=== PATIENT | female | born 1940 | race Caucasian/White ===

== ENCOUNTER 2021-07-16 18:26 | Outpatient (CLI) | payer MEDICARE, MEDICAID, SELFPAY ==
[2021-07-16 19:14] LABS: Potassium 3.7 mmol/L (3.5-5.1)
== END 2021-07-16 18:27 | disposition home or self-care (01) ==
PROVIDERS: Visit Provider Hospitalist
DX: E87.5 Hyperkalemia (principal)
CPT/HCPCS: 84132

== ENCOUNTER → 2023-05-12 15:17 | Outpatient (BNVA) | payer MEDICARE, OTHER, MEDICAID, SELFPAY | PROVIDERS: PCP Nurse Practitioner Family; Visit Provider Family Medicine | DX: N23 Unspecified renal colic (principal) | CPT/HCPCS: 81003; 87077; 87086; 87184 ==

== ENCOUNTER → 2023-06-11 13:54 | Outpatient (BNVA) | payer MEDICARE, OTHER, MEDICAID, SELFPAY | PROVIDERS: PCP Nurse Practitioner Family; Visit Provider Family Medicine | DX: R41.82 Altered mental status, unspecified (principal) | CPT/HCPCS: 80053 ==

== ENCOUNTER 2023-06-15 15:15 | Outpatient (CLI) | payer MEDICARE, MEDICAID, SELFPAY ==
[2023-06-15 15:52] LABS: Tobramycin Trough 0.6 ug/mL (0.0-2.0)
== END 2023-06-15 15:16 | disposition home or self-care (01) ==
LOC: LAB 15:16
PROVIDERS: PCP Nurse Practitioner Family; Visit Provider Family Medicine
DX: Z01.89 Encounter for other specified special examinations (principal)
CPT/HCPCS: 80200

== ENCOUNTER 2023-06-21 09:27 | Outpatient (CLI) | payer MEDICARE, MEDICAID, SELFPAY ==
[2023-06-21 10:29] LABS: Tobramycin Trough 0.9 ug/mL (0.0-2.0)
== END 2023-06-21 09:28 | disposition home or self-care (01) ==
PROVIDERS: PCP Nurse Practitioner Family; Visit Provider Family Medicine
DX: Z01.89 Encounter for other specified special examinations (principal)
CPT/HCPCS: 80200

== ENCOUNTER → 2023-09-17 10:11 | Outpatient (BNVA) | payer MEDICARE, MEDICAID, SELFPAY | PROVIDERS: PCP Nurse Practitioner Family; Visit Provider Family Medicine | DX: R30.0 Dysuria (principal); R41.82 Altered mental status, unspecified | CPT/HCPCS: 81003; 87077; 87086; 87184 ==

== ENCOUNTER 2023-11-24 12:59 | Emergency (ER) | payer MEDICARE, MEDICAID, SELFPAY ==
[2023-11-24 13:03] VITALS: BP 139/76; PULSE 85; RESP 18; TEMP 37.1; O2SAT 93; BMI 28.3
--- NOTE | 2023-11-24 13:07 | XR_ITS ---
WS: [id number] Exam: XR hip LT 2-3V wo/w pel* [id number] Date/Time of Exam: 11/24/2023 1:07 PM Reason For Exam: injury No acute fracture or dislocation. Moderate degenerative narrowing of the joint compartment. Osteopeni a. Normal soft tissues. IMPRESSION: 1. Moderate degenerative changes. No fracture or dislocation. Tonnis classification 2
--- NOTE | 2023-11-24 13:37 | CT_ITS ---
WS: [id number] CT LEFT HIP, NONCONTRAST. HISTORY: fall Technique: All CT scans at [facility] use at least one of these dose optimization techniques: automated exposure control; mA and/or kV adjustment per patient size (includes targeted exams where dose is matched to clinical indication); or iterative reconstruction. DLP: 481.31 mGy.cm COMPARISON: Radiograph 11/24/2023 Mild narrowing of the LEFT hip joint. No fracture or dislocation. No significant joint effusion or so ft tissue hematoma. Mild atrophy muscle surrounding the LEFT hip. Visualized LEFT pubic rami are inta ct. IMPRESSION: Negative LEFT hip. No fracture.
--- NOTE | 2023-11-24 13:37 | CT_ITS ---
WS: [id number] CT HEAD NONCONTRAST HISTORY: fall TECHNIQUE: Contiguous axial imaging performed through the brain in 2.5 mm imaging. Bone and soft tiss ue windows. Sagittal and coronal reformats reviewed. All CT scans at [facility] use at least one of these dose optimization techniques: automated exposure control; mA and/or kV adjustment per pa tient size (includes targeted exams where dose is matched to clinical indication); or iterative recon struction. DLP: 1757.21 mGy.cm COMPARISON: None available. No acute intracranial hemorrhage, midline shift or mass effect. Moderate atrophy. Diffuse low-attenuation throughout the white matter. No area of sulcal effacement t o suggest superimposed acute infarct. There is extensive chronic white matter disease. Ventricles: Normal size with no hydrocephalus. No intra displacement the cerebellar tonsils. Paranasal sinuses: Small mucous retention cyst or polyp in the RIGHT maxillary sinus. Mastoid air cells: Well pneumatized. Calvarium and scalp: Skull is intact with no soft tissue edema or swelling. IMPRESSION: 1. No acute intracranial hemorrhage or edema. 2. Moderate bilateral atrophy with severe chronic white matter ischemic disease.
--- NOTE | 2023-11-24 13:37 | CT_ITS ---
WS: [id number] CT CERVICAL SPINE HISTORY: fall TECHNIQUE: Contiguous 2.0 mm axial imaging performed through the entire cervical spine. Sagittal and coronal reformats also performed. All CT scans at [facility] use at least one of these dose o ptimization techniques: automated exposure control; mA and/or kV adjustment per patient size (include s targeted exams where dose is matched to clinical indication); or iterative reconstruction. DLP: 1757.21 mGy.cm COMPARISON: None available. Significant scoliosis and RIGHT curvature of the cervical spine. Craniocervical junction is intact. L ateral masses of C1 and C2 are nearly symmetric. The odontoid is intact. There is asymmetry of the fa cet joints and lateral masses of C1 and C2 which appears to be due to the curvature and scoliosis. Bilateral facet joint arthropathy with mild foraminal narrowing. No stenosis. Enlarged multinodular thyroid. Lung apices are clear. IMPRESSION: 1. No acute cervical spine fracture. 2. Significant RIGHT curvature cervical spine with asymmetry of the disc spaces and facet joints. No acute fracture. 3. Multinodular enlarged thyroid.
--- NOTE | 2023-11-24 13:38 | W.ED.EXTPRO ---
HPI - Extremity Problem General: Chief complaint: Extremity Injury, Lower Stated complaint: Fall Time Seen by Provider: 11/24/23 13:03 Source: EMS Mode of arrival: EMS Limitations: no limitations History of Present Illness: 83-year-old female who [facility] this morning concerned that she may have fractured her left hip she complains of left hip pain she states she also hit her head she had a recent fall as well where she had fracture left clavicle she denies any other injuries besides hip and head. 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, site unspecified Need for assistance with personal care Muscle weakness (generalized) Unspecified age-related cataract Physical Exam Const: COMMON NORMALS: no acute distress, patient oriented x3 and healthy appearing HENMT: COMMON NORMALS: normocephalic HEAD & SCALP: normocephalic OTHER: Contusion to forehead Eye: COMMON NORMALS: Equal, round and reactive pupils present and EOMs intact bilaterally PUPIL: Yes Equal, round and reactive pupils present Neck/C-Spine: COMMON NORMALS: full ROM and supple Chest: COMMONS NORMALS: normal inspection of the chest and normal palpation of entire chest wall Resp: COMMON NORMALS: normal respiratory effort, No retractions, No use of accessory muscles and clear to auscultation bilaterally AUSCULTATION: clear to auscultation bilaterally Cardio: COMMON NORMALS: regular rate, regular rhythm and No murmurs present (Cardio) RATE: regular rate RHYTHM: regular rhythm GI: COMMON NORMALS: Normal to inspection, nondistended, normoactive bowel sounds present, Soft to palpation, non-tender and no masses PALPATION: Yes Soft to palpation Extremity: COMMON NORMALS: normal to inspection and full ROM NARRATIVE EXTREMITY EXAM: Slight tenderness to the left hip no obvious deformity distal pulses sensation intact Neuro: COMMON NORMALS: patient oriented x3, moves all extremities and no focal motor deficits Psych: COMMON NORMALS: mental status grossly normal, Normal thought process present and cooperative THOUGHT PROCESS: Normal thought process present Skin: COMMON NORMALS: no rashes or lesions noted and no wounds GENERAL SKIN EXAM: no rashes or lesions noted Course Vital Signs: Vital signs: Vital Signs Temperature 98.7 F 11/24/23 13:03 Pulse Rate 85 11/24/23 13:03 Respiratory Rate 18 11/24/23 13:03 Blood Pressure 139/76 11/24/23 13:03 Pulse Oximetry 93 11/24/23 13:03 Oxygen Delivery Me thod Nasal Cannula 11/24/23 13:03 Oxygen Flow Rate 2 11/24/23 13:03 MDM - Extremity (Nontraumatic) Medical Decision Making Patient presents here with a fall left hip pain and hit her head imaging here is all normal she is stable for [facility]. Lab Data I reviewed the patient's lab results. All radiology interpretation(s) finalized by discharge Discharge Plan Discharge Patient Disposition: Home Clinical Impression: Fall Closed head injury Qualifiers: Encounter type: initial encounter Qualified Code(s): S09.90XA - Unspecified injury of head, initial encounter Contusion of hip, left Qualifiers: Encounter type: initial encounter Qualified Code(s): S70.02XA - Contusion of left hip, initial encounter Condition: Stable Prescriptions: No Action apixaban 5 mg tablet 5 mg PO BID aripiprazole 15 mg tablet 15 mg PO DAILY carboxymethylcellulose sodium 0.25 % dropperette 1 drp ophthalmic (eye) BID bisacodyl 5 mg tablet,delayed release (DR/EC) 20 mg PO DAILY PRN (Reason: Constipation) bisacodyl 10 mg suppository See Rx Instructions .ROUTE .COMPLEX PRN (Reason: Constipation) Rx Instructions: Insert 1 suppository rectally every 24 hours as needed for constipation. Administer 1 time only of no results from milk of magnesia. Zyrtec 10 mg capsule 10 mg PO DAILY PRN (Reason: ALLERGIES) cholecalciferol (vitamin D3) 1,250 mcg (50,000 unit) capsule 1,250 mcg PO Q7D duloxetine 60 mg capsule,delayed release(DR/EC) 60 mg PO DAILY famotidine 20 mg tablet 20 mg PO DAILY fluticasone propionate 50 mcg/actuation blister with device 2 inh inhalation DAILY folic acid 1 mg tablet 1 mg PO DAILY ipratropium-albuterol 0.5 mg-3 mg(2.5 mg base)/3 mL solution for nebulization 3 ml inhalation Q6H PRN (Reason: Shortness Of Breath) lactase 4,500 unit tablet 4,500 unit PO DAILY Rx Instructions: administer with meals and/or snacks loratadine [Allergy Relief (loratadine)] 10 mg tablet 10 mg PO DAILY magnesium citrate [Citrate of Magnesia] Solution See Rx Instructions .ROUTE .COMPLEX Rx Instructions: Give 10 ounces orally every 24 hours as needed for constipation. methimazole 5 mg tablet 5 mg PO BEDTIME magnesium hydroxide [Milk of Magnesia] 400 mg/5 mL suspension See Rx Instructions .ROUTE .COMPLEX PRN (Reason: Constipation) Rx Instructions: Give 30 mL orally every 24 hours as needed for constipation. Administer one time if no bm in 3 days. alum-mag hydroxide-simeth [Mylanta Maximum Strength] 400-400-40 mg/5 mL suspension 10 ml PO Q4H PRN (Reason: indigestion, heartburn or gas) nystatin 100,000 unit/gram cream See Rx Instructions .ROUTE .COMPLEX Rx Instructions: Apply to under breasts and bilateral groin topically twice daily for MASD until healed. polyethylene glycol 3350 17 gram/dose powder See Rx Instructions .ROUTE .COMPLEX PRN (Reason: Constipation) Rx Instructions: Give 1 scoop in 8 ounces liquid as needed. If not BM after 2 days, notify Sonal Benito Aprn pramipexole 0.5 mg tablet 0.5 mg PO BEDTIME acetaminophen 325 mg capsule 325 mg PO Q4H PRN (Reason: Pain) umeclidinium 62.5 mcg/actuation blister with device 1 inh inhalation DAILY Fleet Enema 19-7 gram/118 mL Enema 118 ml CO DAILY PRN (Reason: Constipation) Tylenol PM Extra Strength 25-500 mg Tablet 2 tab PO BEDTIME Calcium 600 600 mg calcium (1,500 mg) Tablet 600 mg PO DAILY carbidopa-levodopa 25-100 mg tablet 1 tab PO DAILY Guaifenesin DM 10-100 mg/5 mL Syrup 10 ml PO Q4H PRN (Reason: Cough) tramadol 50 mg tablet 50 mg PO Q6H PRN (Reason: left shoulder pain) ferrous sulfate 325 mg (65 mg iron) Tablet 325 mg PO BID clomipramine 50 mg capsule 50 mg PO BID Miralax 17 gram/dose Powder See Rx Instructions .ROUTE .COMPLEX Rx Instructions: Give 17 gram in 8 ounces liquid once daily at bedtime. Kaykay Lotion 1 applic TOPICAL BID cholestyramine (with sugar) 4 gram powder in packet See Rx Instructions .ROUTE .COMPLEX Rx Instructions: Give 1 packet in liquid twice daily. Macrobid 100 mg Capsule 100 mg PO BID I-Luis Manuel 300 mcg-200 mg-27 mg-2 mg Tablet 1 tab PO DAILY Rx Instructions: administer after a meal melatonin 5 mg Tablet 10 mg PO BEDTIME Discharge Orders: Discharge ED (Routine); Ordered 11/24/23 Ordered By: Barrett De Jesus Referrals: Esther Benito NP [Primary Care Provider] - 1-3 days Discharge Diet: Advance as tolerated Discharge Activity: Resume usual activity Patient Instructions: Contusion in Adults (ED) Coding Level of Care Code ED Retail Experience Specialist for Khai Castanon
--- NOTE | 2023-11-24 14:45 | PC.PHAR ---
SPOKE WITH NURSE GIRALDO ABOUT DISCREPANCIES ON JAN. TYLENOL PM IS 2 AT BEDTIME., TYLENOL 325 MG IS 2 EVERY 4 HOURS PRN.,DUPLICATE ORDER OF TYLENOL 325 MG AND BISACODYL SUPPOSITORY WAS REMOVED., CARBIDOPA 25 MG CHANGED TO CARBIDOPA LEVODOPA 25-100 DAILY., CLOMIPRAMINE 50MG TWICE DAILY- WAS ENTERED CLOMIPHENE 50MG AND WAS CHANGED., FERROUS SULFATE 325MG WAS ENTERED FERROUS FUMARATE AND WAS CHANGED.,LACTASE 4500 UNITS DAILY WAS PUT IN 4 TIMES DAILY AND CHANGED TO DAILY.,MAG CITRATE PUT IN POWDER AND CHANGED TO LIQUID., MYLANTA WAS ENTERED 4 TIMES DAILY AND WAS CHANGED TO DAILY., MIRALAX VERIFIED 1 DAILY ORDER AT BEDTIME AND 1 PRN ORDER. 11/24/23
--- NOTE | 2023-11-24 15:04 | PC.PHAR ---
PT IS FROM [facility] [place]) [phone]
[2023-11-24 15:38] VITALS: BP 128/95; PULSE 77; O2SAT 97
[2023-11-24 16:30] VITALS: BP 131/92; PULSE 84; O2SAT 96
== END 2023-11-24 19:37 | disposition home or self-care (01) ==
PROVIDERS: Emergency Provider Emergency Medicine; PCP Nurse Practitioner Family
DX: M25.552 Pain in left hip (principal); W19.XXXA Unspecified fall, initial encounter; Z91.81 History of falling
CPT/HCPCS: 70450; 72125; 73502; 73700; 99284

== ENCOUNTER → 2023-12-30 11:31 | Outpatient (BNVA) | payer MEDICARE, MEDICAID, SELFPAY | PROVIDERS: PCP Nurse Practitioner Family; Referring Provider Nurse Practitioner Family; Visit Provider Student in an Organized Health Care Education/Training Program | DX: S42.002A Fracture of unspecified part of left clavicle, initial encounter for closed fracture; W19.XXXA Unspecified fall, initial encounter | CPT/HCPCS: 23500; 73000; 99204 ==

== ENCOUNTER → 2024-02-02 11:52 | Outpatient (BNVA) | payer MEDICARE, MEDICAID, SELFPAY | PROVIDERS: PCP Nurse Practitioner Family; Visit Provider Nurse Practitioner Family | DX: R82.90 Unspecified abnormal findings in urine (principal) | CPT/HCPCS: 81003; 87077; 87086; 87184 ==

== ENCOUNTER → 2024-03-08 13:58 | Outpatient (BNVA) | payer MEDICARE, MEDICAID, SELFPAY | PROVIDERS: PCP Nurse Practitioner Family; Visit Provider Nurse Practitioner Family | DX: R41.0 Disorientation, unspecified (principal) | CPT/HCPCS: 81000; 87077; 87086; 87184 ==

== ENCOUNTER → 2024-03-24 11:48 | Outpatient (BNVA) | payer MEDICARE, MEDICAID, SELFPAY | PROVIDERS: PCP Nurse Practitioner Family; Visit Provider Student in an Organized Health Care Education/Training Program | DX: S42.002A Fracture of unspecified part of left clavicle, initial encounter for closed fracture (principal); X58.XXXA Exposure to other specified factors, initial encounter | CPT/HCPCS: 73000; 99213 ==

== ENCOUNTER → 2024-06-19 15:53 | Outpatient (BNVA) | payer MEDICARE, MEDICAID, SELFPAY | PROVIDERS: PCP Nurse Practitioner Family; Visit Provider Nurse Practitioner Family | DX: N30.01 Acute cystitis with hematuria (principal) | CPT/HCPCS: 81000; 87086 ==

== ENCOUNTER 2024-07-24 04:38 | Emergency (ER) | payer MEDICARE, MEDICAID, SELFPAY ==
[2024-07-24 04:39] VITALS: BP 145/84; PULSE 75; RESP 16; TEMP 36.3; O2SAT 94; BMI 37.8
[2024-07-24 04:49] VITALS: BP 145/84; PULSE 75; RESP 16; O2SAT 97
--- NOTE | 2024-07-24 04:49 | CTR_ITS ---
PROCEDURE INFORMATION: Exam: CT Head Without Contrast Exam date and time: 07/24/2024 4:54 AM Age: 83 years old Clinical indication: Injury or trauma; Blunt trauma (contusions or hematomas) and laceration; Without residual foreign body; Right; Patient HX: EMS arrival from [facility] for fall with headstrike. Deep lac with hematoma to RT eyebrow. Anticoagulated. ; Additional info: Fall head inj TECHNIQUE: Imaging protocol: Computed tomography of the head without contrast. Radiation optimization: All CT scans at this facility use at least one of these dose optimization techniques: automated exposure control; mA and/or kV adjustment per patient size (includes targeted exams where dose is matched to clinical indication); or iterative reconstruction. COMPARISON: CT head wo con* [id number] 11/24/2023 1:45 PM RADIATION DOSE METRICS: Total DLP (mGy-cm): 1084.6 FINDINGS: Brain: . No hemorrhage. Periventricular white matter lucency represents atherosclerotic encephalopathic changes. Cerebral ventricles: No ventriculomegaly. Mild ventricular prominence proportionate to the degree of atrophy observed. Paranasal sinuses: Visualized sinuses are unremarkable. No fluid levels. Mastoid air cells: Visualized mastoid air cells are well aerated. Bones: Unremarkable. No acute fracture. Soft tissues: Soft tissue injury above the right orbit. Other findings: No mass effect. CT/CT head wo con* [id number] IMPRESSION: No acute intracranial abnormality.
--- NOTE | 2024-07-24 04:49 | CTR_ITS ---
PROCEDURE INFORMATION: Exam: CT Cervical Spine Without Contrast Exam date and time: 07/24/2024 4:58 AM Age: 83 years old Clinical indication: Injury or trauma; Blunt trauma; Patient HX: EMS arrival from residential for fall with headstrike. Deep lac with hematoma to RT eyebrow. Anticoagulated. ; Additional info: Fall head inj TECHNIQUE: Imaging protocol: Computed tomography of the cervical spine without contrast. Radiation optimization: All CT scans at this facility use at least one of these dose optimization techniques: automated exposure control; mA and/or kV adjustment per patient size (includes targeted exams where dose is matched to clinical indication); or iterative reconstruction. COMPARISON: CT cervical spin wo con* [id number] 11/24/2023 1:45 PM RADIATION DOSE METRICS: Total DLP (mGy-cm): 597.54 FINDINGS: Bones: No acute fracture. Mild diffuse demineralization. Disc space narrowing and spurring C4 through C7. Anatomic alignment. No fracture, lytic, or sclerotic bone lesion. No significant disc bulge or herniation. No severe spinal canal stenosis. No significant neural foraminal narrowing. Lungs: Lung apices are normal. Soft tissues: Unremarkable. CT/CT cervical spin wo con* [id number] IMPRESSION: No acute findings.
[2024-07-24] MEDS: lidocaine-epi 1% 20 mL INJ 10 ML INJECTION (05:15)
--- NOTE | 2024-07-24 05:38 | W.ED.FALL ---
HPI - Fall General: Chief Complaint: Fall Stated Complaint: FALL Time Seen by Provider: 07/24/24 04:46 History of Present Illness: 83-year-old female prison patient with a history of Alzheimer's dementia. She was found on the floor sometime after 3 AM. She has a right sided periorbital/eyebrow lack. She has pain in that area. She has not vomited. She believes she remembers the fall, but does not remember other details. Related Data Home Medications Medication Instructions Recorded Confirmed acetaminophen 325 mg capsule 325 mg PO Q4H PRN Pain 09/28/23 06/30/24 aluminum-mag hydroxide-simethicone 10 ml PO Q4H PRN indigestion, 09/28/23 06/30/24 400 mg-400 mg-40 mg/5 mL oral susp heartburn or gas (Mylanta Maximum Strength) apixaban 5 mg tablet 5 mg PO BID 09/28/23 06/30/24 aripiprazole 15 mg tablet 15 mg PO DAILY 09/28/23 06/30/24 bisacodyl 10 mg rectal suppository See Rx Instructions .Route 09/28/23 06/30/24 .COMPLEX PRN Constipation bisacodyl 5 mg tablet,delayed 20 mg PO DAILY PRN Constipation 09/28/23 06/30/24 release carboxymethylcellulose sodium 0.25 1 drp ophthalmic (eye) BID 09/28/23 06/30/24 % eye drops in a dropperette cetirizine 10 mg capsule (Zyrtec) 10 mg PO DAILY PRN ALLERGIES 09/28/23 06/30/24 cholecalciferol (vitamin D3) 1,250 1,250 mcg PO Q7D 09/28/23 06/30/24 mcg (50,000 unit) capsule duloxetine 60 mg capsule,delayed 60 mg PO DAILY 09/28/23 06/30/24 release famotidine 20 mg tablet 20 mg PO DAILY 09/28/23 06/30/24 fluticasone propionate 50 2 inh inhalation DAILY 09/28/23 06/30/24 mcg/actuation blister powder for inhalation folic acid 1 mg tablet 1 mg PO DAILY 09/28/23 06/30/24 ipratropium 0.5 mg-albuterol 3 mg 3 ml inhalation Q6H PRN Shortness 09/28/23 06/30/24 (2.5 mg base)/3 mL nebulization Of Breath soln lactase 4,500 unit tablet 4,500 unit PO DAILY 09/28/23 06/30/24 loratadine 10 mg tablet (Allergy 10 mg PO DAILY 09/28/23 06/30/24 Relief (loratadine)) magnesium citrate (Citrate of See Rx Instructions .Route .COMPLEX 09/28/23 06/30/24 Magnesia oral) magnesium hydroxide 400 mg/5 mL See Rx Instructions .Route 09/28/23 06/30/24 oral suspension (Milk of Magnesia) .COMPLEX PRN Constipation methimazole 5 mg tablet 5 mg PO BEDTIME 09/28/23 06/30/24 nystatin 100,000 unit/gram topical See Rx Instructions .Route .COMPLEX 09/28/23 06/30/24 cream polyethylene glycol 3350 17 See Rx Instructions .Route 09/28/23 06/30/24 gram/dose oral powder .COMPLEX PRN Constipation pramipexole 0.5 mg tablet 0.5 mg PO BEDTIME 09/28/23 06/30/24 umeclidinium 62.5 mcg/actuation 1 inh inhalation DAILY 09/28/23 06/30/24 blister powder for inhalation calcium carbonate (Calcium 600) 600 mg PO DAILY 11/24/23 06/30/24 carbidopa 25 mg-levodopa 100 mg 1 tab PO DAILY 11/24/23 06/30/24 tablet cholestyramine (with sugar) 4 gram See Rx Instructions .Route .COMPLEX 11/24/23 06/30/24 powder for susp in a packet clomipramine 50 mg capsule 50 mg PO BID 11/24/23 06/30/24 dextromethorphan-guaifenesin 10 10 ml PO Q4H PRN Cough 11/24/23 06/30/24 mg-100 mg/5 mL oral syrup diphenhydramine 25 2 tab PO BEDTIME 11/24/23 06/30/24 mg-acetaminophen 500 mg tablet (Tylenol PM Extra Strength) ferrous sulfate 325 mg (65 mg 325 mg PO BID 11/24/23 06/30/24 iron) tablet lanolin-mineral oil lotion 1 applic topical BID 11/24/23 06/30/24 melatonin 5 mg tablet 10 mg PO BEDTIME 11/24/23 06/30/24 polyethylene glycol 3350 17 See Rx Instructions .Route .COMPLEX 11/24/23 06/30/24 gram/dose oral powder (Miralax) sodium phosphates 19 gram-7 118 ml MS DAILY PRN Constipation 11/24/23 06/30/24 gram/118 mL enema (Fleet Enema) vit A 300 mcg-C 200 mg-E 27 1 tab PO DAILY 11/24/23 06/30/24 mg-lutein 2 mg and minerals tablet (I-Luis Manuel) Allergies Allergy/AdvReac Type Severity Reaction Status Date / Time cefdinir Allergy Unknown Unknown Verified 07/24/24 04:46 egg Allergy Unknown Unknown Verified 07/24/24 04:46 lactose Allergy Unknown Unknown Verified 07/24/24 04:46 Penicillins Allergy Unknown Unknown Verified 07/24/24 04:46 Sulfa (Sulfonamide Allergy Unknown Unknown Verified 07/24/24 04:46 Antibiotics) PFS ED PFSH: Medical History Anxiety disorder, unspecified Dependence on supplemental oxygen Essential (primary) hypertension Absent-minded Calculus of kidney Vitamin D deficiency, unspecified 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, site unspecified Need for assistance with personal care Muscle weakness (generalized) Unspecified age-related cataract Social History Smoking and tobacco/nicotine status: unknown if used tobacco/nicotine Alcohol intake: never Physical Exam Const: COMMON NORMALS: no acute distress GENERAL APPEARANCE: cooperative and frail appearing; not ill appearing ORIENTATION/CONSCIOUSNESS: Yes awake, Yes oriented to person and Yes oriented to place; not oriented to time HENMT: COMMON NORMALS: normocephalic HEAD & SCALP: normocephalic and laceration (Right eyebrow) FACE & SINUS: ecchymosis (Right forehead and periorbital) Eye: COMMON NORMALS: Equal, round and reactive pupils present and EOMs intact bilaterally GENERAL EYE: no proptosis EYELID: eyelids normal PUPIL: Yes Equal, round and reactive pupils present Neck/C-Spine: GENERAL: Yes trachea midline CERVICAL SPINE: No pain with cervical ROM and Yes Cervical spine tenderness (Mild base) Resp: COMMON NORMALS: normal respiratory effort and clear to auscultation bilaterally AUSCULTATION: clear to auscultation bilaterally Cardio: COMMON NORMALS: regular rate and regular rhythm RATE: regular rate RHYTHM: regular rhythm GI: COMMON NORMALS: Soft to palpation PALPATION: Yes Soft to palpation and No Tenderness to palpation present (GI) Neuro: SENSORIUM/ORIENTATION: Yes oriented to person, Yes oriented to place and No oriented to time Procedures Laceration Laceration 1: Site: face Side (If applicable): right Size (cm): 3 Description: irregular Depth: simple, single layer Local Anesthetic: lidocaine 1% and with epi Amount of anesthesia used (mL): 5 Pre-repair: wound explored, irrigated extensively and deep structures intact Skin layer closed with: other (Prolene) Size (cm): 5-0 Number of sutures: 5 Technique: simple, interrupted Course Vital Signs: Vital signs: Vital Signs Temperature 97.4 F L 07/24/24 04:39 Pulse Rate 73 07/24/24 11:06 Respiratory Rate 16 07/24/24 06:21 Blood Pressure 135/105 07/24/24 11:06 Pulse Oximetry 92 07/24/24 11:06 Oxygen Delivery Me thod Nasal Cannula 07/24/24 07:22 Oxygen Flow Rate 2 07/24/24 07:22 MDM - Fall Medical Decision Making Patient appears by history to be baseline mental status. She is anticoagulated. CT of the head and C-spine are pending. Laceration is repaired without complication. CTs of the head and cervical spine are negative for trauma. She remains stable. She will be discharged to return for and new concerns or symptoms. Lab Data Radiology Impressions Cervical Spine CT 07/24/24 04:49 IMPRESSION: No acute findings. Head CT 07/24/24 04:49 IMPRESSION: No acute intracranial abnormality. All radiology interpretation(s) finalized by discharge Discharge Plan Discharge Patient Disposition: Home Clinical Impression: Facial laceration Qualifiers: Encounter type: initial encounter Qualified Code(s): S01.81XA - Laceration without foreign body of other part of head, initial encounter Contusion of face Qualifiers: Encounter type: initial encounter Qualified Code(s): S00.83XA - Contusion of other part of head, initial encounter Condition: Stable Prescriptions: No Action apixaban 5 mg tablet 5 mg PO BID aripiprazole 15 mg tablet 15 mg PO DAILY carboxymethylcellulose sodium 0.25 % dropperette 1 drp ophthalmic (eye) BID bisacodyl 5 mg tablet,delayed release (DR/EC) 20 mg PO DAILY PRN (Reason: Constipation) bisacodyl 10 mg suppository See Rx Instructions .ROUTE .COMPLEX PRN (Reason: Constipation) Rx Instructions: Insert 1 suppository rectally every 24 hours as needed for constipation. Administer 1 time only of no results from milk of magnesia. Zyrtec 10 mg capsule 10 mg PO DAILY PRN (Reason: ALLERGIES) cholecalciferol (vitamin D3) 1,250 mcg (50,000 unit) capsule 1,250 mcg PO Q7D duloxetine 60 mg capsule,delayed release(DR/EC) 60 mg PO DAILY famotidine 20 mg tablet 20 mg PO DAILY fluticasone propionate 50 mcg/actuation blister with device 2 inh inhalation DAILY folic acid 1 mg tablet 1 mg PO DAILY ipratropium-albuterol 0.5 mg-3 mg(2.5 mg base)/3 mL solution for nebulization 3 ml inhalation Q6H PRN (Reason: Shortness Of Breath) lactase 4,500 unit tablet 4,500 unit PO DAILY Rx Instructions: administer with meals and/or snacks loratadine [Allergy Relief (loratadine)] 10 mg tablet 10 mg PO DAILY magnesium citrate [Citrate of Magnesia] Solution See Rx Instructions .ROUTE .COMPLEX Rx Instructions: Give 10 ounces orally every 24 hours as needed for constipation. methimazole 5 mg tablet 5 mg PO BEDTIME magnesium hydroxide [Milk of Magnesia] 400 mg/5 mL suspension See Rx Instructions .ROUTE .COMPLEX PRN (Reason: Constipation) Rx Instructions: Give 30 mL orally every 24 hours as needed for constipation. Administer one time if no bm in 3 days. alum-mag hydroxide-simeth [Mylanta Maximum Strength] 400-400-40 mg/5 mL suspension 10 ml PO Q4H PRN (Reason: indigestion, heartburn or gas) nystatin 100,000 unit/gram cream See Rx Instructions .ROUTE .COMPLEX Rx Instructions: Apply to under breasts and bilateral groin topically twice daily for MASD until healed. polyethylene glycol 3350 17 gram/dose powder See Rx Instructions .ROUTE .COMPLEX PRN (Reason: Constipation) Rx Instructions: Give 1 scoop in 8 ounces liquid as needed. If not BM after 2 days, notify Sonal Benito Aprn pramipexole 0.5 mg tablet 0.5 mg PO BEDTIME acetaminophen 325 mg capsule 325 mg PO Q4H PRN (Reason: Pain) umeclidinium 62.5 mcg/actuation blister with device 1 inh inhalation DAILY Fleet Enema 19-7 gram/118 mL Enema 118 ml MS DAILY PRN (Reason: Constipation) Tylenol PM Extra Strength 25-500 mg Tablet 2 tab PO BEDTIME Calcium 600 600 mg calcium (1,500 mg) Tablet 600 mg PO DAILY carbidopa-levodopa 25-100 mg tablet 1 tab PO DAILY Guaifenesin DM 10-100 mg/5 mL Syrup 10 ml PO Q4H PRN (Reason: Cough) ferrous sulfate 325 mg (65 mg iron) Tablet 325 mg PO BID clomipramine 50 mg capsule 50 mg PO BID Miralax 17 gram/dose Powder See Rx Instructions .ROUTE .COMPLEX Rx Instructions: Give 17 gram in 8 ounces liquid once daily at bedtime. [place] Lotion 1 applic TOPICAL BID cholestyramine (with sugar) 4 gram powder in packet See Rx Instructions .ROUTE .COMPLEX Rx Instructions: Give 1 packet in liquid twice daily. I-Luis Manuel 300 mcg-200 mg-27 mg-2 mg Tablet 1 tab PO DAILY Rx Instructions: administer after a meal melatonin 5 mg Tablet 10 mg PO BEDTIME Discharge Orders: Discharge ED (Routine); Ordered 07/24/24 Ordered By: Ricardo Mendez Referrals: Esther Benito [employer]INE OPERATOR [Primary Care Provider] - 4-7 days Patient Instructions: Facial Contusion (ED), Facial Laceration (ED), Opioid Safety, Pain Management Activity Restrictions/Additional Instructions: Keep wound clean and dry for 24 hours, then you may wash with soap and running water. Do not soak. Sutures out in 7 days. Return for vomiting, worsening mental status, other concerning symptoms. Coding Level of Care Code ED Public Message Service Supervisor for Khai Castanon
[2024-07-24 06:21] VITALS: BP 117/56; PULSE 76; RESP 16; O2SAT 92
[2024-07-24 07:22] VITALS: BP 145/92; PULSE 82; O2SAT 96
[2024-07-24 11:06] VITALS: BP 135/105; PULSE 73; O2SAT 92
== END 2024-07-24 11:11 | disposition home or self-care (01) ==
PROVIDERS: Emergency Provider Emergency Medicine; PCP Nurse Practitioner Family
DX: S01.111A Laceration without foreign body of right eyelid and periocular area, initial encounter (principal); S00.83XA Contusion of other part of head, initial encounter; I10 Essential (primary) hypertension; G30.9 Alzheimer's disease, unspecified; F02.80 Dementia in other diseases classified elsewhere, unspecified severity, without behavioral disturbance, psychotic disturbance, mood disturbance, and anxiety; W19.XXXA Unspecified fall, initial encounter
CPT/HCPCS: 12013; 70450; 72125; 99284

== ENCOUNTER → 2024-09-13 09:00 | Outpatient (BNVA) | payer MEDICARE, MEDICAID, SELFPAY | PROVIDERS: PCP Nurse Practitioner Family; Visit Provider Nurse Practitioner Family | DX: N30.01 Acute cystitis with hematuria (principal) | CPT/HCPCS: 81000; 87086 ==

== ENCOUNTER 2025-01-17 11:34 | Outpatient (CLI) | payer MEDICARE, MEDICAID, SELFPAY ==
--- NOTE | 2025-01-17 11:45 | MR_ITS ---
WS: [id number] MRI RIGHT SHOULDER HISTORY: M25.511 - Pain in right shoulder COMPARISON: None available. TECHNIQUE: Multiplanar sequences of the shoulder joint are submitted. Significant motion artifact on all sequences. Patient terminated study early due to pain and discomfort. Moderate AC joint arthritis. Moderate subacromial impingement. Enthesopathy along the distal undersurface of the acromion. Small amount of fluid in the subacromial and subdeltoid bursa. No os acromion. Biceps tendon is difficult to identify in the bicipital groove. The tendon is probably present and contains some intermediate signal. Poorly visualized at best. High riding humeral head. Marked narrowing of the glenohumeral joint with osteophytic ridging. Loss of cartilage. Mild atrophy of the supraspinatus muscle. Complete tear of the distal supraspinatus tendon. Tendon is retracted to the superior humeral head. Fluid in the subscapularis recess. Infraspinatus and subscapularis tendons are difficult to identify in their entirety. No full- thickness tears are identified. Poorly visualized labrum. MR/MR shoulder RT wo con* [id number] IMPRESSION: 1. Study is limited by motion and early termination. Patient terminated the st udy early due to discomfort. 2. Complete tear of the supraspinatus tendon with retraction to the superior h umeral head. 3. Moderate AC joint arthritis. 4. Moderate subacromial impingement. 5. Mild supraspinatus muscle atrophy. 6. Poorly visualized labrum, biceps tendon and distal subscapularis and infras pinatus tendons.
== END 2025-01-17 11:35 | disposition home or self-care (01) ==
PROVIDERS: PCP Nurse Practitioner Family; Visit Provider Nurse Practitioner Family
DX: M19.011 Primary osteoarthritis, right shoulder (principal); G89.29 Other chronic pain; M75.101 Unspecified rotator cuff tear or rupture of right shoulder, not specified as traumatic; M75.41 Impingement syndrome of right shoulder; M62.511 Muscle wasting and atrophy, not elsewhere classified, right shoulder; R93.6 Abnormal findings on diagnostic imaging of limbs; M77.8 Other enthesopathies, not elsewhere classified
CPT/HCPCS: 73221

== ENCOUNTER → 2025-01-19 15:07 | Outpatient (BNVA) | payer MEDICARE, MEDICAID, SELFPAY | PROVIDERS: PCP Nurse Practitioner Family; Visit Provider Nurse Practitioner Family | DX: R30.0 Dysuria (principal) | CPT/HCPCS: 81000; 87086 ==

== ENCOUNTER → 2025-01-22 11:38 | Outpatient (BNVA) | payer MEDICARE, MEDICAID, SELFPAY | PROVIDERS: PCP Nurse Practitioner Family; Visit Provider Orthopaedic Surgery | DX: M25.511 Pain in right shoulder (principal); G89.29 Other chronic pain; M75.101 Unspecified rotator cuff tear or rupture of right shoulder, not specified as traumatic | CPT/HCPCS: 73030; 99204 ==

== ENCOUNTER → 2025-02-09 14:35 | Outpatient (BNVA) | payer MEDICARE, MEDICAID, SELFPAY | PROVIDERS: PCP Nurse Practitioner Family; Visit Provider Nurse Practitioner Family | DX: R30.0 Dysuria (principal) | CPT/HCPCS: 81000; 87086 ==

== ENCOUNTER 2025-02-26 10:48 | Emergency (ER) | payer MEDICARE, MEDICAID, SELFPAY ==
[2025-02-26 10:48] VITALS: BP 105/47; PULSE 78; RESP 12; TEMP 36.6; O2SAT 96
--- NOTE | 2025-02-26 10:58 | W.ED.SOB ---
HPI - SOB/Dyspnea General: Chief Complaint: Shortness of Breath/Dyspnea Stated Complaint: hypoxic Time Seen by Provider: 02/26/25 10:53 History of Present Illness: HPI Narrative: 84-year-old female [facility] because they feel like she was requiring low bit more oxygen than her baseline. Upon arrival she is staying 97% on 5 L. She stable on 4 L. Patient received a DuoNeb en route. They also complain that she has been on antibiotics for a month for UTI and it has not helped. Associated symptoms: Deny fever(s) Related Data Home Medications ?Medication ?Instructions ?Recorded ?Confirmed acetaminophen 325 mg capsule 325 mg PO Q4H PRN Pain 09/28/23 02/26/25 aluminum-mag hydroxide-simethicone 10 ml PO Q4H PRN indigestion, 09/28/23 02/26/25 400 mg-400 mg-40 mg/5 mL oral susp heartburn or gas (Mylanta Maximum Strength) apixaban 5 mg tablet 5 mg PO BID 09/28/23 02/26/25 bisacodyl 10 mg rectal suppository See Rx Instructions .Route 09/28/23 02/26/25 .COMPLEX PRN Constipation bisacodyl 5 mg tablet,delayed 20 mg PO DAILY PRN Constipation 09/28/23 02/26/25 release carboxymethylcellulose sodium 0.25 1 drp ophthalmic (eye) BID 09/28/23 02/26/25 % eye drops in a dropperette cholecalciferol (vitamin D3) 1,250 1,250 mcg PO Q7D 09/28/23 02/26/25 mcg (50,000 unit) capsule duloxetine 60 mg capsule,delayed 60 mg PO DAILY 09/28/23 02/26/25 release famotidine 20 mg tablet 20 mg PO DAILY 09/28/23 02/26/25 fluticasone propionate 50 2 inh inhalation DAILY 09/28/23 02/26/25 mcg/actuation blister powder for inhalation folic acid 1 mg tablet 1 mg PO DAILY 09/28/23 02/26/25 ipratropium 0.5 mg-albuterol 3 mg 3 ml inhalation Q6H PRN Shortness 09/28/23 02/26/25 (2.5 mg base)/3 mL nebulization Of Breath soln lactase 4,500 unit tablet 4,500 unit PO DAILY 09/28/23 02/26/25 loratadine 10 mg tablet (Allergy 10 mg PO DAILY 09/28/23 02/26/25 Relief (loratadine)) magnesium citrate (Citrate of See Rx Instructions .Route .COMPLEX 09/28/23 02/26/25 Magnesia oral) magnesium hydroxide 400 mg/5 mL See Rx Instructions .Route 09/28/23 02/26/25 oral suspension (Milk of Magnesia) .COMPLEX PRN Constipation methimazole 5 mg tablet 5 mg PO BEDTIME 09/28/23 02/26/25 nystatin 100,000 unit/gram topical See Rx Instructions .Route .COMPLEX 09/28/23 02/26/25 cream polyethylene glycol 3350 17 See Rx Instructions .Route 09/28/23 02/26/25 gram/dose oral powder .COMPLEX PRN Constipation pramipexole 0.5 mg tablet 0.5 mg PO BEDTIME 09/28/23 02/26/25 umeclidinium 62.5 mcg/actuation 1 inh inhalation DAILY 09/28/23 02/26/25 blister powder for inhalation calcium carbonate (Calcium 600) 600 mg PO DAILY 11/24/23 02/26/25 carbidopa 25 mg-levodopa 100 mg 1 tab PO DAILY 11/24/23 02/26/25 tablet cholestyramine (with sugar) 4 gram See Rx Instructions .Route .COMPLEX 11/24/23 02/26/25 powder for susp in a packet clomipramine 50 mg capsule 50 mg PO BID 11/24/23 02/26/25 dextromethorphan-guaifenesin 10 10 ml PO Q4H PRN Cough 11/24/23 02/26/25 mg-100 mg/5 mL oral syrup diphenhydramine 25 2 tab PO BEDTIME 11/24/23 02/26/25 mg-acetaminophen 500 mg tablet (Tylenol PM Extra Strength) ferrous sulfate 325 mg (65 mg 325 mg PO BID 11/24/23 02/26/25 iron) tablet lanolin-mineral oil lotion 1 applic topical BID 11/24/23 02/26/25 melatonin 5 mg tablet 10 mg PO BEDTIME 11/24/23 02/26/25 polyethylene glycol 3350 17 See Rx Instructions .Route .COMPLEX 11/24/23 02/26/25 gram/dose oral powder (Miralax) sodium phosphates 19 gram-7 118 ml AL DAILY PRN Constipation 11/24/23 02/26/25 gram/118 mL enema (Fleet Enema) vit A 300 mcg-C 200 mg-E 27 1 tab PO DAILY 11/24/23 02/26/25 mg-lutein 2 mg and minerals tablet (I-Luis Manuel) alprazolam 1 mg tablet 1 mg PO BID 02/26/25 02/26/25 aripiprazole 30 mg tablet 30 mg PO DAILY 02/26/25 02/26/25 ciprofloxacin HCl 500 mg tablet 500 mg PO BID 02/26/25 02/26/25 fluticasone propionate 50 1 spray intranasal DAILY 02/26/25 02/26/25 mcg/actuation nasal spray,suspension Previous Rx's ?Medication ?Instructions ?Recorded nitrofurantoin 100 mg PO Q12H 7 days #14 caps 02/26/25 monohydrate/macrocrystals 100 mg capsule (Macrobid) Allergies Allergy/AdvReac Type Severity Reaction Status Date / Time cefdinir Allergy Unknown Unknown Verified 01/22/25 11:39 egg Allergy Unknown Unknown Verified 01/22/25 11:39 lactose Allergy Unknown Unknown Verified 01/22/25 11:39 Penicillins Allergy Unknown Unknown Verified 01/22/25 11:39 Sulfa (Sulfonamide Allergy Unknown Unknown Verified 01/22/25 11:39 Antibiotics) Review of Systems General: Reports: Other (Limited due to baseline dementia) Const: Denies: fever(s) Resp: Reports: non-productive cough PFSH ED PFSH: Medical History Anxiety disorder, unspecified Dependence on supplemental oxygen Essential (primary) hypertension Absent-minded Calculus of kidney Vitamin D deficiency, unspecified 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, site unspecified Need for assistance with personal care Muscle weakness (generalized) Unspecified age-related cataract Social History Smoking and tobacco/nicotine status: former use of tobacco/nicotine Alcohol intake: never Physical Exam Const: COMMON NORMALS: no acute distress Resp: COMMON NORMALS: normal respiratory effort AUSCULTATION: no wheezes, diminished lung sounds (Mild) and bronchial breath sounds Cardio: COMMON NORMALS: regular rate and regular rhythm RATE: regular rate RHYTHM: regular rhythm Neuro: OTHER: At baseline Psych: OTHER: At baseline Course Vital Signs: Vital signs: Vital Signs Temperature 97.8 F 02/26/25 10:48 Pulse Rate 80 02/26/25 13:29 Respiratory Rate 16 02/26/25 13:29 Blood Pressure 113/72 02/26/25 13:29 Pulse Oximetry 92 02/26/25 13:29 Oxygen Delivery Me thod Nasal Cannula 02/26/25 12:47 Oxygen Flow Rate 3 02/26/25 12:47 MDM - SOB/Dyspnea Medical Decision Making Patient's diagnostic studies were ordered reviewed and showed no acute findings on labs. Patient does have a chronic urinary tract infection. I did review her previous microbiology and it appears to be susceptible to Macrobid so I will start her on this as she has multitude of allergies. Patient's x-ray showed likely rotation however mass or wide mediastinum could be possible so I did obtain a CTA that shows no acute findings. Patient's O2 saturations were maintaining in the mid 90s on her baseline 3 L. Patient received DuoNeb and route and had clear lungs while in the ER. Patient received Solu-Medrol in the ER. Patient is stable throughout her stay and will be [facility] with recommendations to follow-up with her primary care provider for chronic UTI and chronic COPD. She was stable upon discharge. Lab Data 02/26/25 11:17 02/26/25 11:17 Labs/Radiology: Radiology Impressions Chest X-Ray 02/26/25 11:00 IMPRESSION: 1. Questionable widening of the mediastinum. This may be due to AP technique and rotation of the chest however a mass or aneurysm could have similar appearance. 2. No acute process noted otherwise. Chest CTA 02/26/25 11:57 IMPRESSION: 1. No pulmonary emboli. 2. Right sided pulmonary nodules measuring up to 5 mm. For patients at low risk (minimal or absent history of smoking and of other known risk factors), no routine follow-up is indicated. For patients at high risk (history of smoking or of other known risk factors), consider optional CT Chest at 12 months. (Reference: Urban) 3. Mild right lower lobe bronchiectasis and subsegmental atelectasis. 4. 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 REFERENCES: Urban Amos, et al. Guidelines for Management of Incidental Pulmonary Nodules Detected on CT Images: From the Fleischner Society 2017. Radiology. 2017;284(1):228-243. Laboratory Results WBC 7.85 10^3/uL (3.29-11.43) 02/26/25 11:17 RBC 2.93 10^6/uL (3.85-5.65) L 02/26/25 11:17 Hgb 9.30 g/dL (11.27-16.99) L 02/26/25 11:17 Hct 30.5 % (36-47) L 02/26/25 11:17 MCV 104.1 fl (85-98) H 02/26/25 11:17 MCH 31.7 pg (27-33) 02/26/25 11:17 MCHC 30.5 g/dL (30-55) 02/26/25 11:17 RDW 17.2 % (12.1-15.1) H 02/26/25 11:17 Plt Count 336 10^3/cmm (157-399) 02/26/25 11:17 MPV 9.2 fL (7.4-10.4) 02/26/25 11:17 Neut % (Auto) 62.4 % 02/26/25 11:17 Lymph % (Auto) 23.8 % 02/26/25 11:17 [place] % (Auto) 9.0 % 02/26/25 11:17 Eos % (Auto) 3.4 % 02/26/25 11:17 Baso % (Auto) 0.4 % 02/26/25 11:17 Neut # (Auto) 4.89 10^3/uL (1.8-7.7) 02/26/25 11:17 Lymph # (Auto) 1.9 10^3/uL (0.8-4.8) 02/26/25 11:17 [place] # (Auto) 0.7 10^3/uL (0.2-0.9) 02/26/25 11:17 Eos # (Auto) 0.3 10^3/uL (0.0-0.8) 02/26/25 11:17 Baso # (Auto) 0.0 10^3/uL (0.0-0.1) 02/26/25 11:17 Nucleated RBC % (auto) 0 % 02/26/25 11:17 Nucleated RBCs # 0.0 /100WBC 02/26/25 11:17 Sodium 135 mmol/L (136-145) L 02/26/25 11:17 Potassium 3.9 mmol/L (3.5-5.1) 02/26/25 11:17 Chloride 99 mmol/L (98-107) 02/26/25 11:17 Carbon Dioxide 30 mmol/L (22-29) H 02/26/25 11:17 Anion Gap 9.9 (5-19) 02/26/25 11:17 BUN 15 mg/dL (8-23) 02/26/25 11:17 Creatinine 0.5 mg/dL (0.5-0.9) 02/26/25 11:17 GFR Calculation Not Reportable 02/26/25 11:17 Glucose 107 mg/dL (65-115) 02/26/25 11:17 Calculated Osmolality 281 mOsm/kg (285-295) L 02/26/25 11:17 Calcium 8.4 mg/dL (8.5-10.5) L 02/26/25 11:17 Magnesium 1.6 mg/dL (1.7-2.3) L 02/26/25 11:17 Urine Color Yellow (Yellow) 02/26/25 11:49 Urine Appearance Turbid (CLEAR) A 02/26/25 11:49 Urine pH 6.0 (5-7) 02/26/25 11:49 Ur Specific [place] 1.013 (1.005-1.030) 02/26/25 11:49 Urine Protein 2+ (Negative) A 02/26/25 11:49 Urine Glucose (UA) Negative (Normal) 02/26/25 11:49 Urine Ketones Negative (Negative) 02/26/25 11:49 Urine Blood 3+ (Negative) A 02/26/25 11:49 Urine Nitrate Positive (Negative) A 02/26/25 11:49 Urine Bilirubin Negative (Negative) 02/26/25 11:49 Urine Urobilinogen 1.0 mg/dL (Negative) 02/26/25 11:49 Ur Leukocyte Esterase 3+ (Negative) A 02/26/25 11:49 Urine RBC 21-50 /hpf (0-2) H 02/26/25 11:49 Urine WBC >100 /hpf (0-5) H 02/26/25 11:49 Ur Squamous Epith Cells 0-5 /hpf (0-5) 02/26/25 11:49 Amorphous Sediment Not Reportable 02/26/25 11:49 Urine Bacteria 4+ /hpf (NONE) H 02/26/25 11:49 Hyaline Casts 3.30 /lpf 02/26/25 11:49 Influenza A (PCR) Negative (Negative) 02/26/25 11:51 Influenza Type B (PCR) Negative (Negative) 02/26/25 11:51 RSV (PCR) Negative (Negative) 02/26/25 11:51 SARS-CoV-2 (PCR) Negative (Negative) 02/26/25 11:51 All radiology interpretation(s) finalized by discharge Discharge Plan Discharge Patient Disposition: Home Clinical Impression: Chronic obstructive pulmonary disease, unspecified, Chronic lower urinary tract infection Condition: Stable Prescriptions: New nitrofurantoin monohyd/m-cryst [Macrobid] 100 mg capsule 100 mg PO Q12H 7 Days Qty: 14 0RF Rx Instructions: must administer with a meal/food No Action apixaban 5 mg tablet 5 mg PO BID carboxymethylcellulose sodium 0.25 % dropperette 1 drp ophthalmic (eye) BID bisacodyl 5 mg tablet,delayed release (DR/EC) 20 mg PO DAILY PRN (Reason: Constipation) bisacodyl 10 mg suppository See Rx Instructions .ROUTE .COMPLEX PRN (Reason: Constipation) Rx Instructions: Insert 1 suppository rectally every 24 hours as needed for constipation. Administer 1 time only of no results from milk of magnesia. cholecalciferol (vitamin D3) 1,250 mcg (50,000 unit) capsule 1,250 mcg PO Q7D duloxetine 60 mg capsule,delayed release(DR/EC) 60 mg PO DAILY famotidine 20 mg tablet 20 mg PO DAILY fluticasone propionate 50 mcg/actuation blister with device 2 inh inhalation DAILY folic acid 1 mg tablet 1 mg PO DAILY ipratropium-albuterol 0.5 mg-3 mg(2.5 mg base)/3 mL solution for nebulization 3 ml inhalation Q6H PRN (Reason: Shortness Of Breath) lactase 4,500 unit tablet 4,500 unit PO DAILY Rx Instructions: administer with meals and/or snacks loratadine [Allergy Relief (loratadine)] 10 mg tablet 10 mg PO DAILY magnesium citrate [Citrate of Magnesia] Solution See Rx Instructions .ROUTE .COMPLEX Rx Instructions: Give 10 ounces orally every 24 hours as needed for constipation. methimazole 5 mg tablet 5 mg PO BEDTIME magnesium hydroxide [Milk of Magnesia] 400 mg/5 mL suspension See Rx Instructions .ROUTE .COMPLEX PRN (Reason: Constipation) Rx Instructions: Give 30 mL orally every 24 hours as needed for constipation. Administer one time if no bm in 3 days. alum-mag hydroxide-simeth [Mylanta Maximum Strength] 400-400-40 mg/5 mL suspension 10 ml PO Q4H PRN (Reason: indigestion, heartburn or gas) nystatin 100,000 unit/gram cream See Rx Instructions .ROUTE .COMPLEX Rx Instructions: Apply to under breasts and bilateral groin topically twice daily for MASD until healed. polyethylene glycol 3350 17 gram/dose powder See Rx Instructions .ROUTE .COMPLEX PRN (Reason: Constipation) Rx Instructions: Give 1 scoop in 8 ounces liquid as needed. If not BM after 2 days, notify Sonal Benito Aprn pramipexole 0.5 mg tablet 0.5 mg PO BEDTIME acetaminophen 325 mg capsule 325 mg PO Q4H PRN (Reason: Pain) umeclidinium 62.5 mcg/actuation blister with device 1 inh inhalation DAILY Fleet Enema 19-7 gram/118 mL Enema 118 ml AL DAILY PRN (Reason: Constipation) diphenhydramine-acetaminophen [Tylenol PM Extra Strength] 25-500 mg Tablet 2 tab PO BEDTIME calcium carbonate [Calcium 600] 600 mg calcium (1,500 mg) Tablet 600 mg PO DAILY carbidopa-levodopa 25-100 mg tablet 1 tab PO DAILY dextromethorphan-guaifenesin [Guaifenesin DM] 10-100 mg/5 mL Syrup 10 ml PO Q4H PRN (Reason: Cough) ferrous sulfate 325 mg (65 mg iron) Tablet 325 mg PO BID clomipramine 50 mg capsule 50 mg PO BID polyethylene glycol 3350 [Miralax] 17 gram/dose Powder See Rx Instructions .ROUTE .COMPLEX Rx Instructions: Give 17 gram in 8 ounces liquid once daily at bedtime. Kaykay Lotion 1 applic TOPICAL BID cholestyramine (with sugar) 4 gram powder in packet See Rx Instructions .ROUTE .COMPLEX Rx Instructions: Give 1 packet in liquid twice daily. I-Luis Manuel 300 mcg-200 mg-27 mg-2 mg Tablet 1 tab PO DAILY Rx Instructions: administer after a meal melatonin 5 mg Tablet 10 mg PO BEDTIME alprazolam 1 mg tablet 1 mg PO BID ciprofloxacin HCl 500 mg tablet 500 mg PO BID fluticasone propionate 50 mcg/actuation spray,suspension 1 spray INTRANASAL DAILY aripiprazole 30 mg tablet 30 mg PO DAILY Discharge Orders: Discharge ED (Routine); Ordered 02/26/25 Ordered By: Chano Hutchinson Referrals: Esther Benito, [facility] [Primary Care Provider] - Discharge Diet: Usual diet Discharge Activity: Resume usual activity Patient Instructions: Chronic Bronchitis (ED), Urinary Tract Infection in Older Adults (ED), Opioid Safety, Pain Management Activity Restrictions/Additional Instructions: Please follow-up with her primary care provider with her chronic urinary tract infections. Please have her start Macrobid as her last urine and culture was susceptible. Please use her DuoNeb every 6 hours while awake for the next 24 hours then as needed. Print Language: Danish Coding Level of Care Code ED [employer] for Khai Castanon
--- NOTE | 2025-02-26 11:00 | XR_ITS ---
WS: [id number] Exam: XR chest 1V portable [id number] Date/Time of Exam: 02/26/2025 11:21 AM Reason For Exam: Shortness of breath No previous exams. The lungs are fully inflated and clear. Heart size is normal for technique. There may be some widening of the mediastinum although there is magnification and some rotation of the chest. No pleural effusions. Bony structures are intact. Recommendations: A detailed PA and lateral chest x-ray would be recommended for follow-up. XR/XR chest 1V portable [id number] IMPRESSION: 1. Questionable widening of the mediastinum. This may be due to AP technique an d rotation of the chest however a mass or aneurysm could have similar appearanc e. 2. No acute process noted otherwise.
[2025-02-26] MEDS: methylPREDNISolone sod succ 125 mg/2 mL INJ 80 MG IV (11:07)
[2025-02-26] MEDS: ipratropium-albuterol 3 mL Neb INHALATION (11:09)
[2025-02-26 11:12] VITALS: PULSE 70; RESP 14; O2SAT 95
[2025-02-26 11:37] LABS: Blood Urea Nitrogen 15 mg/dL (8-23); Calcium 8.4 mg/dL (8.5-10.5); Carbon Dioxide 30 mmol/L (22-29); Chloride 99 mmol/L (98-107); Creatinine Clr Calc Pharmacy 47.0164; Glucose 107 mg/dL (65-115); Magnesium 1.6 mg/dL (1.7-2.3); Osmolality Calculated 281 mOsm/kg (285-295); Sodium 135 mmol/L (136-145)
[2025-02-26 11:38] LABS: Anion Gap 9.9 (5-19); Potassium 3.9 mmol/L (3.5-5.1)
[2025-02-26 11:46] LABS: Basophils % 0.4 %; Eosinophils # 0.3 10^3/uL (0.0-0.8); Eosinophils % 3.4 %; Hematocrit 30.5 % (36-47); Lymphocytes # 1.9 10^3/uL (0.8-4.8); Lymphocytes % 23.8 %; Mean Corpuscular HGB Conc 30.5 g/dL (30-55); Mean Corpuscular Hemoglobin 31.7 pg (27-33); Mean Corpuscular Volume 104.1 fl (85-98); Mean Platelet Volume 9.2 fL (7.4-10.4); Monocytes # 0.7 10^3/uL (0.2-0.9); Neutrophils # 4.89 10^3/uL (1.8-7.7); Neutrophils % 62.4 %; Nucleated Red Blood Cells % 0 %; Platelet Count 336 10^3/cmm (157-399); Red Blood Count 2.93 10^6/uL (3.85-5.65); Red Cell Distribution Width 17.2 % (12.1-15.1); White Blood Count 7.85 10^3/uL (3.29-11.43)
--- NOTE | 2025-02-26 11:57 | CTR_ITS ---
PROCEDURE INFORMATION: Exam: CTA Chest With Contrast Exam date and time: 02/26/2025 12:10 PM Age: 84 years old Clinical indication: Dyspnea; Additional info: PT C/O extreme dyspnea and hoxia x 3 wks TECHNIQUE: Imaging protocol: Computed tomographic angiography of the chest with contrast. Exam focused on the arteries. 3D rendering (Not supervised by radiologist): MIP and/or 3D reconstructed images were created by the technologist. Radiation optimization: All CT scans at this facility use at least one of these dose optimization techniques: automated exposure control; mA and/or kV adjustment per patient size (includes targeted exams where dose is matched to clinical indication); or iterative reconstruction. Contrast material: OMNI 350; Contrast volume: 100 ml; Contrast route: INTRAVENOUS (IV); COMPARISON: CR XR chest 1V portable [id number] 02/26/2025 11:28 AM RADIATION DOSE METRICS: Total DLP (mGy-cm): 804.91 FINDINGS: Pulmonary arteries: No pulmonary emboli are seen. The main pulmonary artery is enlarged suggesting pulmonary hypertension. Aorta: Unremarkable. No aortic aneurysm. No aortic dissection. Lungs: There is mild bronchiectasis in the right lower lobe. Focal curvilinear scar or discoid atelectasis seen in the right midlung anteriorly. 5 mm noncalcified pulmonary nodule versus mucous plug in the right middle lobe. Pleural-based nodule in the right midlung measures 4 mm, also noncalcified. Focal subsegmental atelectasis in the right lower lobe. Pleural spaces: Unremarkable. No pneumothorax. No pleural effusion. Heart: Unremarkable. No cardiomegaly. No pericardial effusion. Lymph nodes: Unremarkable. No enlarged lymph nodes. Adrenal glands: There is a partially visualized left adrenal nodule which is heterogeneous and contains some macroscopic fat density. The left adrenal nodule measures 2.6 x 2.6 cm, most consistent with a myelolipoma. Bones/joints: Unremarkable. No acute fracture. Soft tissues: Unremarkable. CT/CT angio chest [id number] IMPRESSION: 1. No pulmonary emboli. 2. Right sided pulmonary nodules measuring up to 5 mm. For patients at low risk (minimal or absent history of smoking and of other known risk factors), no routine follow-up is indicated. For patients at high risk (history of smoking or of other known risk factors), consider optional CT Chest at 12 months. (Reference: Urban) 3. Mild right lower lobe bronchiectasis and subsegmental atelectasis. 4. 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 REFERENCES: Urban Amos, et al. Guidelines for Management of Incidental Pulmonary Nodules Detected on CT Images: From the Fleischner Society 2017. Radiology. 2017;284(1):228-243.
[2025-02-26 12:04] LABS: Bilirubin Urine Negative (Negative); Blood Urine 3+ (Negative); Glucose Urine UA Negative (Normal); Ketones Urine Negative (Negative); Leukocyte Esterase Urine 3+ (Negative); Nitrate Urine Positive (Negative); Protein Urine 2+ (Negative); Specific Gravity, Urine 1.013 (1.005-1.030); Urine Appearance Turbid (CLEAR); Urine Color Yellow (Yellow)
[2025-02-26 12:06] LABS: Bacteria Urine 4+ /hpf; RBC Urine 21-50 /hpf (0-2); Squamous Epithelial Cell Urine 0-5 /hpf (0-5); WBC Urine >100 /hpf (0-5)
[2025-02-26 12:16] LABS: Add Urine Culture? Yes
[2025-02-26] MEDS: iohexol 350 mg/mL 500 mL Btl (per mL) IV (12:25)
[2025-02-26 12:39] LABS: Influenza A NEGATIVE (Negative); Influenza B NEGATIVE (Negative); Respiratory Syncytial Virus Ce NEGATIVE (Negative); SARS-CoV-2 PCR NEGATIVE (Negative)
[2025-02-26 12:47] VITALS: BP 118/70; PULSE 77; RESP 14; O2SAT 95
[2025-02-26 13:29] VITALS: BP 113/72; PULSE 80; RESP 16; O2SAT 92
== END 2025-02-26 13:30 | disposition home or self-care (01) ==
PROVIDERS: Emergency Provider Student in an Organized Health Care Education/Training Program; PCP Nurse Practitioner Family
DX: J44.9 Chronic obstructive pulmonary disease, unspecified (principal); N39.0 Urinary tract infection, site not specified; Z11.52 Encounter for screening for COVID-19; Z87.891 Personal history of nicotine dependence; I10 Essential (primary) hypertension
CPT/HCPCS: 36415; 71045; 71275; 80048; 81000; 81001; 83735; 85025; 87077; 87086; 87186; 87637; 94640; 96374; 99285; J2919; J9999

== ENCOUNTER → 2025-03-27 11:18 | Outpatient (BNVA) | payer MEDICARE, MEDICAID, SELFPAY | PROVIDERS: PCP Nurse Practitioner Family; Visit Provider Nurse Practitioner Family | DX: R30.0 Dysuria (principal); N30.01 Acute cystitis with hematuria | CPT/HCPCS: 81000; 87086 ==

== ENCOUNTER → 2025-04-12 09:24 | Outpatient (BNVA) | payer MEDICARE, MEDICAID, SELFPAY | PROVIDERS: PCP Nurse Practitioner Family; Visit Provider Nurse Practitioner Family | DX: N30.01 Acute cystitis with hematuria (principal); R41.0 Disorientation, unspecified | CPT/HCPCS: 81000; 87077; 87086; 87184 ==

== ENCOUNTER → 2025-04-13 11:20 | Outpatient (BNVA) | payer MEDICARE, MEDICAID, SELFPAY | PROVIDERS: PCP Nurse Practitioner Family; Visit Provider Orthopaedic Surgery | DX: M25.511 Pain in right shoulder (principal); M75.101 Unspecified rotator cuff tear or rupture of right shoulder, not specified as traumatic | CPT/HCPCS: 73030; 99213 ==

== ENCOUNTER → 2025-11-07 09:49 | Outpatient (BNVA) | payer MEDICARE, MEDICAID, SELFPAY | PROVIDERS: PCP Nurse Practitioner Family; Visit Provider Nurse Practitioner Family | DX: N30.01 Acute cystitis with hematuria (principal) | CPT/HCPCS: 81000 ==